=== PATIENT | male | born 1965 | race Caucasian/White ===

== ENCOUNTER 2021-10-18 11:03 | Emergency (ER) | payer OTHER ==
[~2021-10-18] VITALS: Ht 177.8 cm; Wt 113.6 kg
[2021-10-18] MEDS ORDERED: ondansetron/PF 4mg/2ml inj IV ONE (13:25)
[2021-10-18] MEDS ORDERED: morphine 4 MG/ML inj SYRINge IV ONE (13:45)
[2021-10-18 14:11] LABS: ALANINE AMINOTRANSFERASE 17 U/L (12-78); ALBUMIN/GLOBULIN RATIO 0.8 (1.1-1.5); ALKALINE PHOSPHATASE 175 IU/L (46-116); ANION GAP 14 (8-16); ASPARTATE AMINO TRANSFERASE 20 U/L (10-37); BILIRUBIN,TOTAL 1.3 MG/DL (0.1-1.0); BLOOD UREA NITROGEN 22 MG/DL (7-18); BUN/CREATININE RATIO 12.2 (5.4-32.0); CALCIUM 10.2 MG/DL (8.5-10.1); CHLORIDE 105 MMOL/L (99-107); CREATININE 1.81 MG/DL (0.60-1.10); GLUCOSE 153 MG/DL (70-104); LIPASE 73 U/L (73-393); POTASSIUM 4.8 MMOL/L (3.5-5.1); SODIUM 138 MMOL/L (135-145); TOTAL CARBON DIOXIDE 18.8 MMOL/L (24-32); TOTAL PROTEIN 9.2 G/DL (6.4-8.2); eGFR 39 ML/MIN
[2021-10-18] MEDS: proMETHazine 25mg tablet PO ONE ×2 (14:43→14:56)
[2021-10-18 14:44] LABS: BASOPHILS # (AUTO) 0.1 X10'3 (0-0.2); BASOPHILS % (AUTO) 0.2 % (0-1); EOSINOPHILS % (AUTO) 0.1 % (0-6); HEMATOCRIT 47.9 % (42.0-52.0); HEMOGLOBIN 16.6 g/dl (14.0-17.9); LYMPHOCYTES # (AUTO) 1.4 X10'3 (1.1-4.8); LYMPHOCYTES % (AUTO) 5.7 % (21-51); MEAN CORPUSCULAR HEMOGLOBIN 29.5 PG (27.0-31.0); MEAN CORPUSCULAR HGB CONC 34.7 g/dL (33.0-36.5); MEAN PLATELET VOLUME 7.8 FL (7.4-10.4); MONOCYTES # (AUTO) 1.4 X10'3 (0-0.9); MONOCYTES % (AUTO) 5.5 % (2-12); NEUTROPHILS # (AUTO) 21.8 X10'3 (1.8-7.7); NEUTROPHILS % (AUTO) 88.5 % (42-75); PLATELET COUNT 438 X10'3 (140-440); RED BLOOD COUNT 5.63 X10'6 (4.70-6.10); RED CELL DISTRIBUTION WIDTH 13.6 % (11.5-14.5); WHITE BLOOD COUNT 24.7 X10'3 (4.5-11.0)
[2021-10-18] MEDS ORDERED: metoclopramide 5 mg/ml inj IV ONE (14:50)
[2021-10-18] MEDS ORDERED: IOHEXOL 12MG/ML oral solution 500 ML BOTTLE PO ONE (15:05)
--- NOTE | 2021-10-18 15:25 | NUR ---
ORAL CONTRAST DRINK STARTED AT 1525.
[2021-10-18] MEDS ORDERED: proCHLORperazine 10 MG/2 ml inj IV ONE (15:30)
[2021-10-18] MEDS ORDERED: magnesium citrate 296ml oral solution PO ONE (18:10)
[2021-10-18] MEDS ORDERED: METO-292 PO (18:30)
[2021-10-18 21:20] VITALS: BP 161/96
== END 2021-10-18 21:23 | disposition home or self-care (01) ==
LOC: ER 11:03
DX: K59.00 Constipation, unspecified (principal); G89.29 Other chronic pain; Z88.5 Allergy status to narcotic agent; Z88.1 Allergy status to other antibiotic agents
CPT/HCPCS: 36415; 71046; 74018; 74176; 80053; 83605; 83690; 84145; 85025; 87040; 93005; 96374; 96375; 99285; J0780; J2270; J2405; J2765; J7030; Q0169

== ENCOUNTER 2023-08-29 09:53 | Day surgery (SDC) | payer MEDICARE ==
[2023-08-28 14:38] LABS: ALBUMIN 2.9 G/DL (3.4-5.0); ANION GAP 6 (8-16); BLOOD UREA NITROGEN 16 MG/DL (7-18); BUN/CREATININE RATIO 12.3 (10.0-20.0); CHLORIDE 106 MMOL/L (99-107); GLUCOSE 128 MG/DL (70-104); POTASSIUM 4.1 MMOL/L (3.5-5.1); SODIUM 138 MMOL/L (135-145); TOTAL CARBON DIOXIDE 26.1 MMOL/L (24-32); eGFR 57 ML/MIN
[2023-08-28 14:44] LABS: APTT 31 SECONDS (22-32); INR 1.1 INR; PROTHROMBIN TIME 11.4 SECONDS (9.0-12.0)
[2023-08-28 15:25] LABS: BASOPHILS # (AUTO) 0.1 X10'3 (0-0.2); BASOPHILS % (AUTO) 0.7 % (0-1); EOSINOPHILS # (AUTO) 0.4 X10'3 (0-0.9); EOSINOPHILS % (AUTO) 3.7 % (0-6); HEMATOCRIT 44.6 % (42.0-52.0); HEMOGLOBIN 15.5 g/dl (14.0-17.9); LYMPHOCYTES # (AUTO) 4.7 X10'3 (1.1-4.8); LYMPHOCYTES % (AUTO) 40.3 % (21-51); MEAN CORPUSCULAR HEMOGLOBIN 28.5 PG (27.0-31.0); MEAN CORPUSCULAR HGB CONC 34.8 g/dL (33.0-36.5); MEAN CORPUSCULAR VOLUME 81.8 FL (78-98); MEAN PLATELET VOLUME 8.1 FL (7.4-10.4); MONOCYTES # (AUTO) 1.1 X10'3 (0-0.9); MONOCYTES % (AUTO) 9.7 % (2-12); NEUTROPHILS # (AUTO) 5.4 X10'3 (1.8-7.7); NEUTROPHILS % (AUTO) 45.6 % (42-75); PLATELET COUNT 335 X10'3 (140-440); RED BLOOD COUNT 5.46 X10'6 (4.70-6.10); RED CELL DISTRIBUTION WIDTH 15.1 % (11.5-14.5); WHITE BLOOD COUNT 11.7 X10'3 (4.5-11.0)
[2023-08-29] VITALS (15 sets, daily range): BP systolic 103–146; BP diastolic 56–103; PULSE 50–100; RESP 13–22; TEMP 98; O2SAT 92–97
[~2023-08-29] VITALS: Ht 177.8 cm; Wt 110.0 kg
[~2023-08-29 09:53] MED LIST: AMI200T PO; APIX5TAB3 PO; ASPI81TA53 PO; ATOR10TA PO; CETI-194 PO; CINA60TA4 PO; DOCU100C40 PO; ESCI20TA PO; GABA-535 PO; LOP25T PO; MAGN400C PO; METO-477 PO; MULT-1085 PO; MYCO250C PO; OMEP40CA21 PO; ONDA-104 PO; OXYC-150 PO; TACR1CAP PO
[2023-08-29] MEDS ORDERED: AMI200T PO (10:26)
[2023-08-29] MEDS ORDERED: GABA800T11 PO (10:26)
[2023-08-29] MEDS ORDERED: OMEP20TA23 PO (10:26)
[2023-08-29] MEDS ORDERED: ATOR40TA71 PO (10:26)
[2023-08-29] MEDS ORDERED: MAGN500C4 PO (10:26)
[2023-08-29] MEDS ORDERED: MYCO500T PO (10:26)
[2023-08-29] MEDS: fentaNYL/PF 50MCG/1 ML 2ML syringe IV ONE (13:56)
[2023-08-29] MEDS: MIDAZolam 1mg/ml 10ml vial IV ONE (13:57)
== END 2023-08-29 15:40 | disposition home or self-care (01) ==
LOC: SSTAY O 09:53
PROVIDERS: ATTEND Student in an Organized Health Care Education/Training Program
DX: I48.91 Unspecified atrial fibrillation (principal); I44.7 Left bundle-branch block, unspecified; I11.0 Hypertensive heart disease with heart failure; I50.9 Heart failure, unspecified; I25.10 Atherosclerotic heart disease of native coronary artery without angina pectoris; G47.30 Sleep apnea, unspecified; I25.2 Old myocardial infarction; Z79.01 Long term (current) use of anticoagulants; Z79.899 Other long term (current) drug therapy; Z88.0 Allergy status to penicillin; Z88.8 Allergy status to other drugs, medicaments and biological substances
CPT/HCPCS: 36415; 80048; 85025; 85610; 85730; 92960; 93005; J2250; J3010; J7030

== ENCOUNTER 2025-01-20 10:40 | Inpatient (IN) | payer OTHER, MEDICARE ==
[~2025-01-20] VITALS: Ht 177.8 cm; Wt 106.3 kg
[~2025-01-20 10:40] MED LIST changes: -AMI200T PO; +AMIO200T76 PO; -ATOR10TA PO; +ATOR40TA71 PO; +GABA-1555 PO; -GABA-535 PO; -LOP25T PO; -MAGN400C PO; +MAGN500C4 PO; -MYCO250C PO; +MYCO500T PO; +OMEP20TA23 PO; -OMEP40CA21 PO; -OXYC-150 PO
--- NOTE | 2025-01-20 10:45 | ELECTROCARDIOGRAPH REPORT ---
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 Sherif Novoa Measurements Intervals [place] Rate: 151 P: 0 TN: 0 QRS: 5 QRSD: 125 T: 250 QT: 307 QTc: 487 Interpretive Statements Atrial flutter LVH with secondary repolarization abnormality Borderline prolonged QT interval Baseline wander in lead(s) V2,V3,V4,V5,V6 Electronically Signed On 01-22-2025 19:18:[address] Sherif Novoa Please click the below link to view image of tracing.
--- NOTE | 2025-01-20 11:30 | RADIOLOGY REPORT ---
CHEST RADIOGRAPH Indication: CP Technique: Single frontal view of the chest was obtained COMPARISON: DI CHEST,SINGLE VIEW on DOS: 05/03/23, DI CHEST,SINGLE VIEW on DOS: 05/02/23, DI CHEST,SINGLE VIEW on DOS: 05/01/23, DI CHEST,SINGLE VIEW on DOS: 04/30/23, DI CHEST,SINGLE VIEW on DOS: 04/29/23 FINDINGS: Lines and Tubes: Median sternotomy Lungs: Congestion Pleura: No effusion. No pneumothorax. Cardiomediastinal contours: Cardiomegaly Bones: Unremarkable IMPRESSION: Pulmonary vascular congestion.
[2025-01-20 11:32] LABS: MEAN PLATELET VOLUME 8.9 FL (7.4-10.4); RED CELL DISTRIBUTION WIDTH 13.9 % (11.5-14.5)
--- NOTE | 2025-01-20 11:40 | Physician Documentation ---
History of Present Illness ~ Chief Complaint: Palpitations Stated Complaint: AFIB Time Seen by MD: 11:34 Primary Medical Doctor: WAGNER RHODES HPI 59-year-old male presenting with palpitations and nausea He tells me that his symptoms started sudden onset this morning. He reports having a rapid irregular heart rate, as well as severe nausea. He had he reports a history of atrial fibrillation with similar symptoms in the past. The last time this happened was over a year ago and he was cardioverted. Denies having chest pain or shortness of breath. Denies recent infectious symptoms. Denies abdominal pain. He does have a history of atrial fibrillation, and has been on Eliquis but has not taken it for a couple of months. He has a history of dialysis but is not currently on dialysis. Medication Reconciliation Allergies: Coded Allergies: amlodipine (Verified Allergy, Unknown, RECESS GUMS, 04/22/23) amoxicillin (Verified Allergy, Unknown, HIVES, 04/22/23) Scheduled Amiodarone Hcl (Cordarone), 1 TAB PO DAILY, (Reported) Apixaban (Eliquis), 1 TAB PO Q12H, (Reported) Aspirin (Children's Aspirin), 81 MG PO Q24H@0830 Atorvastatin Calcium (Atorvastatin Calcium), 1 TAB PO DAILY, (Reported) Cetirizine HCl (Aller-Serafin), 1 TAB PO DAILY, (Reported) Cinacalcet HCl (Cinacalcet HCl), 1 TAB PO DAILY, (Reported) Escitalopram Oxalate (Lexapro), 1 TAB PO DAILY, (Reported) Gabapentin (Gabapentin), 1 TAB PO BID, (Reported) Magnesium Oxide (Magnesium), 1 CAP PO DAILY, (Reported) Metoprolol Tartrate (Lopressor*), 1 TAB PO Q12H Multivitamin (Multi Vitamin Daily), 1 TAB PO DAILY, (Reported) Mycophenolate Mofetil (Cellcept), 1 TAB PO Q12H, (Reported) Omeprazole Magnesium (Prilosec Otc), 1 TAB PO DAILY, (Reported) Tacrolimus Anhydrous (Prograf), 1 CAP PO Q12H, (Reported) Scheduled PRN Docusate Sodium (Docusate Sodium), 1 CAP PO DAILY PRN for constipation, (Reported) Ondansetron HCl (Ondansetron HCl), 1 TAB PO Q4H PRN for nausea, (Reported) Past Medical History Past Medical History: Atrial Fibrillation, Coronary Artery Disease, Hypertension, *GI/HEPATOBILIARY*, Cholelithiasis, GERD, Kidney Transplant, Chronic Pain Past Surgical History: abdominal surgery, appendectomy, cholecystectomy Other Past Surgical History: kidney transplant Alcohol Use: None Drug Use: none Lives In: Home Review of Systems Constitutional: Reports: chills Cardiovascular: Reports: diaphoresis, palpitations; Denies: chest pain Gastrointestinal: Reports: nausea; Denies: abdominal pain Physical Exam Vital Signs: Temperature: 97.6, Source: Temporal, Heart Rate: 145, Respiratory Rate: 18, BP: 154/113, Pulse Oximetry: 98, Weight: 106.300 Oxygen Flow Rate: 0 Physical Exam General: This is an ill-appearing middle-aged man, holding his abdomen, sweating, partner at bedside HEENT: Atraumatic, oropharynx is moist Heart: Tachycardic with an irregular rate, appears atrial fibrillation on the monitor, heart rate in the 140s Lungs: Diminished breath sounds bilateral, normal work of breathing, normal oxygen saturation on room air Abdomen: Soft, nondistended, nontender all quadrants Skin: Diaphoretic and dripping sweat Neuro: Alert and oriented, no focal deficits Psychiatric: Anxious and appears in distress Progress Results/Orders Results/Orders Orders - GARRET WASSERMAN MD Chest,Single View (01/20/25 11:04) Monitor (01/20/25 10:42) Saline Lock (01/20/25 10:42) Oxygen (01/20/25 10:42) Hs Troponin I W Calculations (01/20/25 13:42) LA (01/20/25 13:52) Culture Blood (01/20/25 13:52) Urinalysis, Cult If Indicated (01/20/25 13:52) Page Hospitalist (01/20/25 13:54) Completed Orders - GARRET WASSERMAN MD Chest,Single View (01/20/25 11:04) Cbc/Diff (01/20/25 10:42) BMP (01/20/25 10:42) PBNP (01/20/25 10:42) Electrocardiogram (01/20/25 10:42) Hs Troponin I W Calculations (01/20/25 10:42) Hs Troponin I W Calculations (01/20/25 12:42) Prochlorperazine Inj (Compazine Inj) (01/20/25 11:40) Normal Saline 1000ml (0.9% Sodium Chlori (01/20/25 11:40) Diphenhydramine Inj (Benadryl Inj.) (01/20/25 11:40) Propofol Inj (Diprivan Inj) (01/20/25 11:40) MG (01/20/25 10:58) Electrocardiogram (01/20/25 ) Prochlorperazine Inj (Compazine Inj) (01/20/25 13:50) Diphenhydramine Inj (Benadryl Inj.) (01/20/25 13:50) Lipase (01/20/25 10:58) Medications Received in ER Medications (Trade) Dose Ordered Sig/Chantel Route PRN Reason Start Time Stop Time Status Last Admin Dose Admin (Compazine inj) 10 mg ONCE ONCE IV 01/20/25 11:40 01/20/25 11:41 DC 01/20/25 11:48 10 MG Sodium Chloride 1,000 ml @ 1,000 mls/hr ONCE ONCE IV 01/20/25 11:40 01/20/25 12:39 DC 01/20/25 11:48 1,000 MLS/HR (Benadryl inj.) 12.5 mg ONCE ONCE IV 01/20/25 11:40 01/20/25 11:41 DC 01/20/25 11:48 12.5 MG (Compazine inj) 5 mg ONCE ONCE IV 01/20/25 13:50 01/20/25 13:54 DC 01/20/25 14:10 5 MG (Benadryl inj.) 25 mg ONCE ONCE IV 01/20/25 13:50 01/20/25 13:54 DC 01/20/25 14:10 25 MG Vital Signs 01/20/25 01/20/25 01/20/25 01/20/25 10:43 11:39 11:40 11:40 Temp 97.6 Pulse 150 145 Resp 18 18 B/P (MAP) 150/115 154/113 (127) Pulse Ox 99 98 98 O2 Delivery Room Air* O2 Flow Rate 0 0 FiO2 21 01/20/25 01/20/25 11:52 14:00 Pulse 80 75 Resp 16 18 B/P (MAP) 183/111 (135) 172/96 (121) Pulse Ox 98 97 O2 Flow Rate 0 0 Laboratory Tests Test 01/20/25 10:58 01/20/25 12:49 01/20/25 14:02 01/20/25 14:05 White Blood Count 18.7 H Red Blood Count 5.50 Hemoglobin 16.5 Hematocrit 48.8 Mean Corpuscular Volume 88.8 Mean Corpuscular Hemoglobin 30.1 Mean Corpuscular Hemoglobin Concent 33.9 Red Cell Distribution Width 13.9 Platelet Count 303 Mean Platelet Volume 8.9 Neutrophils (%) (Auto) 67.7 Lymphocytes (%) (Auto) 24.2 Monocytes (%) (Auto) 6.4 Eosinophils (%) (Auto) 1.3 Basophils (%) (Auto) 0.4 Neutrophils # (Auto) 12.6 H Lymphocytes # (Auto) 4.5 Monocytes # (Auto) 1.2 H Eosinophils # (Auto) 0.2 Basophils # (Auto) 0.1 CBC Comment Sodium Level 143 Potassium Level 3.9 Chloride Level 108 H Carbon Dioxide Level 23.1 L Anion Gap 12 Blood Urea Nitrogen 17 Creatinine 1.25 H Estimated GFR/1.73 m2 60 BUN/Creatinine Ratio 13.6 Glucose Level 147 H Calcium Level 10.2 H Magnesium Level 1.7 Troponin I High Sensitivity 74 122 *H Pro-B-Type Natriuretic Peptide 4377 H Albumin 3.6 Lipase 16 Chemistry Comments Troponin I High Sens Percent Delta 64 Troponin I Hi Sens Absolute Change 48 Re-Evaluation Re-Evaluation : Re-Evaluation: Improved Additional Comment On re-evaluation, the patient now appears to be in sinus rhythm with a heart rate in the 80s. EKG/XRAY/CT/US/VASC/MRI EKG : Additional Comment I personally interpreted the EKG and this shows: Atrial flutter versus fibrillation, rate 151, QTC 487 Repeat EKG: The patient is now in sinus rhythm, rate 76, QTC 480, he still has T-wave inversion in the inferior lateral leads Chest X-Ray : Additional Comments I personally interpreted the x-ray, and it shows: Mild pulmonary edema, no pneumothorax or focal consolidation Consults/PCP Consults/PCP : Additional Comment Consult: I spoke to the internal medicine service, for admission in the hospital Medical Decision Making Differential Dx:Considerations: Include: angina / MD, atrial dysrhythmia, atrial fibrillation, atrial flutter, sinus tachycardia Differential Dx:Considerations: Include electrolyte disorder, Include heart failure, Include pulmonary embolus, Include renal failure Additional Information The patient presents with palpitations and nausea. He is found to be in atrial fibrillation with RVR. He was given IV fluids and nausea medication. We were actually preparing for cardioversion, but he spontaneously converted back to normal sinus rhythm. However, he remained ill-appearing, nauseous, diaphoretic. His labs do show a leukocytosis and slightly up trending troponin. He denied chest pain during this entire episode. Overall, the exact cause of his symptoms is unclear. We will obtain lactate and blood cultures and urinalysis to further evaluate for underlying infection as a possible cause. He will be admitted for further observation and treatment Departure Impression: Primary Impression: Atrial fibrillation with RVR Additional Impression: Nausea Referrals: NO PRIMARY CARE PROVIDER (PCP) Critical Care Note Critical Care Note Critical Care Note The very real possibility of a deterioration of this patient's condition required the highest level of my preparedness for sudden, emergent intervention. I provided critical care services, which included medication orders, frequent reevaluations of the patient's condition and response to treatment, ordering and reviewing test results, and discussing the case with various consultants. Excludes time spent performing separately billable procedures. The critical care time associated with the care of the patient was 35 minutes in the management of atrial fibrillation with RVR Signature Scribe Signature: marlena Attestation: GARRET Eldridge MD Jan 20, 2025 11:40
[2025-01-20 11:45] LABS: CREATININE 1.25 MG/DL (0.60-1.10); PRO BRAIN NATRIURETIC PEPTIDE 4377 PG/ML (0-125); TOTAL CARBON DIOXIDE 23.1 MMOL/L (24-32); eCRCL 67 ML/MIN; eGFR 60 ML/MIN
[2025-01-20] MEDS: normal saline 1000ml 1,000 ML IV ONE (11:48)
[2025-01-20] MEDS: propofol 10mg/ml 20ml vial IV ONE (11:54)
--- NOTE | 2025-01-20 12:14 | ELECTROCARDIOGRAPH REPORT ---
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 Sherif Novoa Measurements Intervals [place] Rate: 76 P: 64 PA: 170 QRS: 0 QRSD: 128 T: -44 QT: 426 QTc: 480 Interpretive Statements Sinus rhythm LVH with secondary repolarization abnormality Inferior infarct, age indeterminate Electronically Signed On 01-22-2025 19:18:[address] Sherif Novoa Please click the below link to view image of tracing.
[2025-01-20] MEDS ORDERED: ondansetron/PF 4mg/2ml inj IV PRN (14:35)
[2025-01-20] MEDS ORDERED: morphine 4 MG/ML inj SYRINge IV PRN (14:35)
[2025-01-20] MEDS ORDERED: bisacodyl 10mg suppository rectal RC PRN (14:35)
[2025-01-20] MEDS ORDERED: potassium Cl 40MEQ/1/2NS 520ml 520 ML IV PRN (14:35)
[2025-01-20] MEDS ORDERED: magnesium sulf-water 2g/50mL 50 ML IV PRN (14:35)
[2025-01-20] MEDS ORDERED: magnesium sulf-water 4G/100mL 100 ML IV PRN (14:35)
[2025-01-20] MEDS ORDERED: magnesium Cl slow-release 64mg tablet PO PRN (14:35)
[2025-01-20] MEDS ORDERED: potassium Cl 20 mEq SR tablet PO PRN ×2 (14:35)
[2025-01-20] MEDS ORDERED: magnesium hydroxide 30ml (MOM) UD suspension PO PRN (14:35)
[2025-01-20] MEDS ORDERED: albuterol 2.5 MG/3 ML nebule NEB PRN (14:40)
[2025-01-20] MEDS: metroNIDAZOLE-Flagyl 500mg/NS 100 ML IV SCH (15:26)
[2025-01-20] MEDS: normal saline 1000ml 1,000 ML IV SCH (15:26)
[2025-01-20 16:10] LABS: LEUKOCYTE ESTERASE ,URINE NEGATIVE (Neg); NITRITES, URINE NEGATIVE (Neg); OCCULT BLOOD,URINE NEGATIVE (Neg)
[2025-01-20 16:55] LABS: UA COLLECTION TYPE URINAL
[2025-01-20 16:57] LABS: URINE AMPHETAMINE SCREEN NEGATIVE (Neg); URINE BARBITUATE SCREEN NEGATIVE (Neg); URINE BENZODIAZEPINES SCREEN NEGATIVE (Neg); URINE CANNABINOID SCREEN POSITIVE (Neg); URINE COCAINE SCREEN NEGATIVE (Neg); URINE METHADONE SCREEN NEGATIVE (Neg); URINE OPIATE SCREEN NEGATIVE (Neg); URINE PHENCYCLIDINE SCREEN NEGATIVE (Neg)
--- NOTE | 2025-01-20 18:14 | HISTORY AND PHYSICAL ---
History & Physical Providers to CC ~ History of Present Illness Reason for Admit\Complaint: Racing heart noticed around 4:30 a.m. History of Present Illness Patient is 59-year-old male with a history of chronic atrial fibrillation, IgA nephropathy, status post renal transplantation, good, chronic pain syndrome, status post CABG. He follows with Dr. Reyna and Dr. Hall in outpatient setting. Patient came to ER with his concern regarding rapid heart rate. Around 4:30 a.m.. He mentioned he took his meds last night but at the same time he told me that he had [place] drink last night also . ( he does not drink everyday but drink every few weeks) , denied use of any tobacco use cannabis two days ago. Denied any nausea vomiting or diarrhea. No recent change in medication history. No abdominal pain or urinary symptoms. He came with palpitation and nausea treated for atrial fibrillation with a RVR and his heart rate control but he was still very nauseated. Further workup showed CBC 18.7 with the elevated blood pressure signs of chronic kidney disease stage 3. Hospitalist services contacted for admission and further management . Allergies: Coded Allergies: amlodipine (Verified Allergy, Unknown, RECESS GUMS, 04/22/23) amoxicillin (Verified Allergy, Unknown, HIVES, 04/22/23) Home Medications Home Medications Active Lopressor* (Metoprolol Tartrate) 100 Mg Tablet 1 Tab PO Q12H 30 Days Children's Aspirin (Aspirin) 81 Mg Tab.chew 81 Mg PO Q24H@0830 Reported Cellcept (Mycophenolate Mofetil) 500 Mg Tablet 1 Tab PO Q12H 30 Days Prilosec Otc (Omeprazole Magnesium) 20 Mg Tablet.dr 1 Tab PO DAILY 30 Days Magnesium (Magnesium Oxide) 500 Mg Capsule 1 Cap PO DAILY 30 Days Gabapentin 800 Mg Tablet 1 Tab PO BID 30 Days Atorvastatin Calcium 40 Mg Tablet 1 Tab PO DAILY 30 Days Cordarone (Amiodarone HCl) 200 Mg Tablet 1 Tab PO DAILY 30 Days Eliquis (Apixaban) 5 Mg Tablet 1 Tab PO Q12H 30 Days Ondansetron HCl 8 Mg Tablet 1 Tab PO Q4H PRN Docusate Sodium 100 Mg Caps 1 Cap PO DAILY PRN 30 Days Aller-Serafin (Cetirizine HCl) 10 Mg Tablet 1 Tab PO DAILY 30 Days Prograf (Tacrolimus) 1 Mg Capsule 1 Cap PO Q12H 30 Days Multi Vitamin Daily (Multivitamin) 1 Each Tablet 1 Tab PO DAILY Lexapro (Escitalopram Oxalate) 20 Mg Tablet 1 Tab PO DAILY 30 Days Cinacalcet HCl 60 Mg Tablet 1 Tab PO DAILY Past Medical History Past Medical History history of IgA nephropathy. He was on dialysis for 9 years and then received a kidney transplant [facility] about 10 years ago. Chronic atrial fibrillation IgA nephropathy Kidney transplant status GERD Chronic pain syndrome Past Surgical History Surgical History Comment Cadaveric renal transplant 10 years ago Past Social History Social History Comment Non-smoker, use cannabis last use of cannabis two days back. Patient had the killer drink last night he usually drink every few weeks off and on. Lives with his . ROS ROS Review of system as mentioned above in HPI rest of the review of system unremarkable Exam Vitals: Vital Signs Date Time Temp Pulse Resp B/P (MAP) Pulse Ox O2 Delivery O2 Flow Rate FiO2 01/20/25 17:00 74 16 156/83 (107) 98 0 01/20/25 11:40 Room Air* 21 01/20/25 10:43 97.6 General: General-patient not in any acute distress, alert awake oriented, chronically ill-appearing HEENT-atraumatic normocephalic, neck supple without elevated JVD, no thyromegaly or carotid bruit. No lymphadenopathy bilaterally. Eyes-no icterus or pallor seen in eyes Chest-clear to auscultation bilaterally, breathing nonlabored no tachypnea, no wheezing, no crepitation, no crackles. Heart-S1-S2 normal, irregular heart rate no murmur Abdomen bowel sounds positive on auscultation, soft nondistended nontender no guarding, no rigidity Skin no active skin rash old healed rash over midline Neurology-grossly intact, nonfocal alert awake oriented Extremity- no pedal edema able to move all 4 extremities Psychiatry - patient is not confused or agitated cooperated during physical examination Diagnostic Data Last Recorded Lab Results: 01/20/25 1058 01/20/25 1058 Diagnostic Data: Laboratory Tests Test 01/20/25 14:55 D-Dimer 0.39 MG/L FEU (0-0.50) D-Dimer Comment Advance Care Planning Advanced Care plannin - 30 Minutes Additional Plan Patient is 59-year-old male with a history of chronic atrial fibrillation, IgA nephropathy, status post renal transplantation, good, chronic pain syndrome, status post CABG. He follows with Dr. Reyna and Dr. Hall in outpatient setting. Patient is admitted for chronic atrial fibrillation possible sepsis chronic kidney disease stage 3, nausea with CBC 18.7 with the elevated blood pressure signs of chronic kidney disease stage 3, nausea with the elevated troponin likely type 2 [place]. patient is started on metoprolol 100 mg p.o. b.i.d. which is his home medication dose. Ordered echocardiogram and we will follow the results. Hydralazine antihypertensive medication. Sepsis workup ordered patient is started on ceftriaxone and Flagyl. Pain medication ordered for pain control started on IV fluids for chronic kidney disease stage 3. We will continue to monitor patient's labs and vitals closely . Needs physical therapy evaluation before discharge . Code status discussed with the patient patient wishes full code. Time spent in discussing code status 16 minutes. We will do home medication reconciliation once updated in electronic by nursing staff or pharmacist. Further management depending on response to treatment and we will contact e learning specialist if needed. I will continue to follow patient in a.m. Date of Service: Jan 20, 2025 Billing Provider: LEMUEL HEAD MD Common Visit Codes: [id number] INP/OBS CARE (HIGH) Secondary Visit Codes: [id number] CARE PLAN 30 MINUTES LEMUEL HEAD MD Jan 20, 2025 18:14
--- NOTE | 2025-01-20 18:49 | CARDIOLOGY REPORT ---
APPROVED REPORT EXAM: Comprehensive 2D, Doppler, and color-flow Echocardiogram. 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 163.7 cm/s AoV VTI 27.0 cm AO Peak GR. 10.7 mmHg AO Mean GR. 6 mmHg LVOT VTI 23.18 cm LVOT Peak Jermaine. 119.7 cm/s CHAPARRITA(VTI)/BSA 2.66 cm2/m2 CHAPARRITA (VTI) 2.66 cm2 Mitral Valve MV E Velocity 139.6 cm/s MV Peak Gr. 12 mmHg MV DECEL TIME 156 ms MV A Velocity 149.7 cm/s MV PHT 68 ms E/A Ratio 0.9 MVA (PHT) 3.24 cm2 MV VMax 171.8 cm/s TDI Lateral E' P. V 5.07 cm/s E/Lateral E' 27.5 Tricuspid Valve TR P. Velocity 250 cm/s RAP ESTIMATE 10 mmHg TR Peak Gr. 25 mmHg RVSP 35 mmHg LEFT VENTRICLE Normal LV size and wall thickness. Overall systolic function is mildly reduced to low normal. LVEF is 50-55%. RIGHT VENTRICLE RV is mildly dilated with normal function. Elevated right heart pressures with an RVSP of 35 mmHg. ATRIA Left atrium is severely dilated. AORTIC VALVE Trileaflet AV appears mildly sclerotic without stenosis. Trace insufficiency. MITRAL VALVE Mild MV annular calcification without stenosis. Moderate regurgitation. TRICUSPID VALVE TV appears structurally normal with trace regurgitation. PULMONIC VALVE Normal PV without stenosis, no insufficiency. GREAT VESSELS Aortic root is mildly dilated, at 4.04 cm. IVC is dilated and collapses less than 50% with inspiration. PERICARDIUM Normal pericardium. No effusion. Other Information Study Quality: Adequate Conclusion Normal LV size and wall thickness. Overall systolic function is mildly reduced to low normal. LVEF is 50-55%. RV is mildly dilated with normal function. Elevated right heart pressures with an RVSP of 35 mmHg. Left atrium is severely dilated. Trileaflet AV appears mildly sclerotic without stenosis. Trace insufficiency. Mild MV annular calcification without stenosis. Moderate regurgitation. TV appears structurally normal with trace regurgitation. Aortic root is mildly dilated, at 4.04 cm. Normal pericardium. No effusion.
[2025-01-20 19:09] VITALS: PULSE 80; O2SAT 96
[2025-01-20] MEDS: heparin, porcine 5000 units/ml vial SQ SCH (20:12)
[2025-01-20] MEDS ORDERED: ZOLP-679 PO (20:43)
[2025-01-20] MEDS ORDERED: GABA-1555 PO (20:43)
[2025-01-20] MEDS ORDERED: CYCL-357 PO (20:43)
[2025-01-20] MEDS ORDERED: OXYC-150 PO (20:43)
[2025-01-20 21:39] VITALS: BP 185/108; PULSE 71; RESP 10; O2SAT 94
[2025-01-20 22:00] VITALS: BP 122/67; PULSE 80; RESP 20; TEMP 98.1; O2SAT 99
[2025-01-20] MEDS: hydrALAZINE 20mg/ml inj. IV PRN (22:00)
[2025-01-20 22:43] VITALS: BP 166/98; PULSE 80
[2025-01-20 23:00] VITALS: RESP 12; O2SAT 95
[2025-01-21] VITALS (11 sets, daily range): BP systolic 118–159; BP diastolic 59–95; PULSE 57–70; RESP 12–24; TEMP 97.6–99.1; O2SAT 91–97
[2025-01-21] MEDS ORDERED: ACYC-53 PO (01:26)
[2025-01-21] MEDS ORDERED: AMIO200T73 PO (01:26)
[2025-01-21] MEDS ORDERED: ATOR40TA72 PO (01:26)
[2025-01-21] MEDS ORDERED: FLUO40CR (01:26)
[2025-01-21 06:07] LABS: MEAN PLATELET VOLUME 9.3 FL (7.4-10.4); RED CELL DISTRIBUTION WIDTH 13.7 % (11.5-14.5)
[2025-01-21 06:34] LABS: CREATININE 1.00 MG/DL (0.60-1.10); TOTAL CARBON DIOXIDE 18.6 MMOL/L (24-32); eCRCL 84 ML/MIN; eGFR 77 ML/MIN
[2025-01-21] MEDS: CefTRIAXone 2gm/D5W 50ml BAG 50 ML IV SCH (08:49)
--- NOTE | 2025-01-21 11:05 | ELECTROCARDIOGRAPH REPORT ---
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 ROXANE Gong Measurements Intervals [place] Rate: 65 P: 70 [place]: 162 QRS: 6 QRSD: 122 T: -73 QT: 495 QTc: 515 Interpretive Statements Sinus rhythm Consider left atrial enlargement LVH with secondary repolarization abnormality Inferoposterior infarct, recent Prolonged QT interval Electronically Signed On 01-21-2025 16:48:[address] ROXANE Gong Please click the below link to view image of tracing.
[2025-01-21] MEDS ORDERED: non-formulary drug (Zolpidem Tartrate (Ambien) 1 TAB) PO PRN (18:20)
--- NOTE | 2025-01-21 18:24 | PROGRESS NOTE ---
Daily Progress Note Providers to CC ~ Antibiotic Timeout Antibiotic Ordered?: Yes Subjective Patient is seen in his room he is feeling much better since yesterday denies any cardiovascular symptoms. Care plan discussed with the patient who is awake alert, all questions answered and all concerns addressed appropriately. Objective Vital Signs Date Time Temp Pulse Resp B/P (MAP) Pulse Ox O2 Delivery O2 Flow Rate FiO2 01/21/25 16:00 98.0 57 24 134/83 (100) 94 Room Air 01/21/25 07:38 0 21 Result Diagram: 01/21/25 0501/21/25 0517 General-patient not in any acute distress, alert awake oriented, chronically ill-appearing HEENT-atraumatic normocephalic, neck supple without elevated JVD, no thyromegaly or carotid bruit. No lymphadenopathy bilaterally. Eyes-no icterus or pallor seen in eyes Chest-clear to auscultation bilaterally, breathing nonlabored no tachypnea, no wheezing, no crepitation, no crackles. Heart-S1-S2 normal, irregular heart rate no murmur Abdomen bowel sounds positive on auscultation, soft nondistended nontender no guarding, no rigidity Skin no active skin rash old healed rash over midline Neurology-grossly intact, nonfocal alert awake oriented Extremity- no pedal edema able to move all 4 extremities Psychiatry - patient is not confused or agitated cooperated during physical examination Coagulation Studies Laboratory Tests Test 01/20/25 14:55 D-Dimer 0.39 MG/L FEU (0-0.50) D-Dimer Comment Problem\Assessment\Plan # Patient is 59-year-old male with a history of chronic atrial fibrillation, IgA nephropathy, status post renal transplantation, good, chronic pain syndrome, status post CABG. He follows with Dr. Reyna and Dr. Hall in outpatient setting. Patient is admitted for chronic atrial fibrillation possible sepsis chronic kidney disease stage 3, nausea with CBC 18.7 with the elevated blood pressure signs of chronic kidney disease stage 3, nausea with the elevated troponin likely type 2 [place]. patient is started on metoprolol 100 mg p.o. b.i.d. which is his home medication dose. Ordered echocardiogram and we will follow the results. Hydralazine antihypertensive medication. Sepsis workup ordered patient is started on ceftriaxone and Flagyl. Pain medication ordered for pain control started on IV fluids for chronic kidney disease stage 3. 01/21-home medication reconciliation updated in electronic records. Echocardiogram showed mildly reduced LVEF 50-55%, elevated right-sided heart pressure RVSP 35, left atrium is severely dilated normal pericardium no effusion. CBC count improving sed rate 12, procalcitonin 0.05 we will continue IV antibiotics. Blood culture showed no growth after one day Renal function improved we will continue to monitor renal function for chronic kidney disease stage 3. Code status discussed with the patient patient wishes full code. We will continue to monitor patient's labs and vitals closely . Further management depending on response to treatment . I will continue to follow patient in a.m. Date of Service: Jan 21, 2025 Billing Provider: LEMUEL HEAD MD Common Visit Codes: [id number] INP/OBS CARE(HIGH) LEMUEL HEAD MD Jan 21, 2025 18:24
[2025-01-21] MEDS: tacrolimus anhydrous 1mg capsule PO SCH (20:06)
[2025-01-22] VITALS (11 sets, daily range): BP systolic 134–200; BP diastolic 76–108; PULSE 55–110; RESP 12–24; TEMP 97.2–98.1; O2SAT 92–98
[2025-01-22] MEDS: HYDROcodone/acetaminophen 5mg/325mg tablet PO PRN (05:48)
[2025-01-22 06:06] LABS: MEAN PLATELET VOLUME 9.2 FL (7.4-10.4); RED CELL DISTRIBUTION WIDTH 14.0 % (11.5-14.5)
[2025-01-22 06:17] LABS: CREATININE 1.03 MG/DL (0.60-1.10); TOTAL CARBON DIOXIDE 21.3 MMOL/L (24-32); eCRCL 82 ML/MIN; eGFR 74 ML/MIN
[2025-01-22] MEDS: cinacalcet 30mg tablet PO SCH (09:34)
[2025-01-22] MEDS: ESCITALOPRAM 10 mg tablet 10 MG TABLET PO SCH (09:35)
[2025-01-22] MEDS: ondansetron 4mg rapidly disintigrating tab PO PRN (13:30)
[2025-01-22] MEDS ORDERED: LOSA50TA64 PO (15:22)
[2025-01-22] MEDS ORDERED: HYDR50TA46 PO (15:23)
[2025-01-22] MEDS ORDERED: LEVO-65 PO (19:48)
--- NOTE | 2025-01-22 19:54 | DISCHARGE SUMMARY ---
Discharge Summary Providers to CC ~ Discharge Summary Admission Diagnosis: Paroxysmal AFib, possible sepsis, CKD three Hospital Course DATE OF ADMISSION: January 20, 2025 DATE OF DISCHARGE: January 22, 2025 CMP done on January 22, 2025 sodium 138 potassium 4.0 creatinine 1.03 GFR 74 lactic acid 1.5 procalcitonin 0.05, total bilirubin 2.4 normal liver enzymes. CBC testing done on January 22, 2025 WBC 15.8 hemoglobin 14.5 hematocrit 42.3 platelet count 279 sed rate 12. Blood culture showed no growth after two days X-ray chest showed signs of pulmonary vascular congestion Echocardiogram.Conclusion Normal LV size and wall thickness. Overall systolic function is mildly reduced to low normal. LVEF is 50-55%. RV is mildly dilated with normal function. Elevated right heart pressures with an RVSP of 35 mmHg. Left atrium is severely dilated. Trileaflet AV appears mildly sclerotic without stenosis. Trace insufficiency. Mild MV annular calcification without stenosis. Moderate regurgitation. TV appears structurally normal with trace regurgitation. Aortic root is mildly dilated, at 4.04 cm. Normal pericardium. No effusion. Discharge Diagnosis\Comment: chronic atrial fibrillation possible sepsis chronic kidney disease stage 3, nausea history of chronic atrial fibrillation, IgA nephropathy, status post renal transplantation, good, chronic pain syndrome, status post CABG. Operations\Procedures: None Consultants: None Complications: None Condition on DC: Stable New Medications: Hydralazine HCl (Hydralazine HCl) 50 Mg Tablet 1 TAB PO Q12H for 30 Days, #60 TAB 0 Refills Levofloxacin (Levofloxacin) 500 Mg Tablet 500 MG PO DAILY for 5 Days, #5 TAB Losartan Potassium (Losartan Potassium) 50 Mg Tablet 50 MG PO DAILY for 30 Days, #30 TAB Continued Medications: Acyclovir (Acyclovir) 200 Mg Capsule 2 CAP PO PRN Apixaban (Eliquis) 5 Mg Tablet 1 TAB PO Q12H for 30 Days, #60 TAB 0 Refills Atorvastatin Calcium (Atorvastatin Calcium) 40 Mg Tablet 1 TAB PO HS Cetirizine HCl (Aller-Serafin) 10 Mg Tablet 1 TAB PO DAILY for allergy symptoms for 30 Days, #30 TAB 0 Refills Cinacalcet HCl (Cinacalcet HCl) 60 Mg Tablet 1 TAB PO DAILY for WITH FOOD Cyclobenzaprine HCl (Cyclobenzaprine HCl) 10 Mg Tablet 1 TAB PO HS for muscle spasms for 30 Days, #30 TAB 0 Refills Docusate Sodium (Docusate Sodium) 100 Mg Caps 1 CAP PO DAILY PRN for constipation for 30 Days, #30 CAP 0 Refills Escitalopram Oxalate (Lexapro) 20 Mg Tablet 1 TAB PO DAILY for 30 Days, #30 TAB Fluorouracil (Efudex) 5 % Cream..g. 1 APPLIC Gabapentin (Gabapentin) 800 Mg Tablet 1 TAB PO TID for 30 Days, #120 TAB 0 Refills Magnesium Oxide (Magnesium) 500 Mg Capsule 1 CAP PO DAILY for 30 Days, #60 CAP 0 Refills Metoprolol Tartrate (Lopressor*) 100 Mg Tablet 1 TAB PO Q12H for 30 Days, #60 TAB 0 Refills Multivitamin (Multi Vitamin Daily) 1 Each Tablet 1 TAB PO DAILY Mycophenolate Mofetil (Cellcept) 500 Mg Tablet 1 TAB PO Q12H for 30 Days, #60 TAB 0 Refills Omeprazole Magnesium (Prilosec Otc) 20 Mg Tablet.dr 1 TAB PO DAILY for 30 Days, #30 TAB 0 Refills Ondansetron HCl (Ondansetron HCl) 8 Mg Tablet 1 TAB PO Q4H PRN for nausea Oxycodone HCl/Acetaminophen (Percocet 10-325 mg Tablet) 10 Mg-325 Mg Tablet 1 TAB PO QID PRN PRN for pain for 30 Days, #30 TAB 0 Refills Tacrolimus Anhydrous (Prograf) 1 Mg Capsule 1 CAP PO Q12H for 30 Days, #60 CAP 0 Refills Zolpidem Tartrate (Ambien) 10 Mg Tablet 1 TAB PO HSPRN PRN for sleep for 30 Days, #30 TAB 0 Refills Discharge Summary: # Patient is 59-year-old male with a history of chronic atrial fibrillation, IgA nephropathy, status post renal transplantation, good, chronic pain syndrome, status post CABG. He follows with Dr. Reyna and Dr. Hall in outpatient setting. Patient is admitted for chronic atrial fibrillation possible sepsis chronic kidney disease stage 3, nausea with CBC 18.7 with the elevated blood pressure signs of chronic kidney disease stage 3, nausea with the elevated troponin likely type 2 DE. patient is started on metoprolol 100 mg p.o. b.i.d. which is his home medication dose. Ordered echocardiogram and we will follow the results. Hydralazine antihypertensive medication. Sepsis workup ordered patient is started on ceftriaxone and Flagyl. Pain medication ordered for pain control started on IV fluids for chronic kidney disease stage 3. 01/21-home medication reconciliation updated in electronic records. Echocardiogram showed mildly reduced LVEF 50-55%, elevated right-sided heart pressure RVSP 35, left atrium is severely dilated normal pericardium no effusion. CBC count improving sed rate 12, procalcitonin 0.05 we will continue IV antibiotics. Blood culture showed no growth after one day Renal function improved we will continue to monitor renal function for chronic kidney disease stage 3. 01/22- patient's blood pressure was uncontrolled he was discharged on hydralazine and losartan at home. Levofloxacin prescribed for possible sepsis Patient is feeling better she has been afebrile and getting discharged home in stable condition. Patient is seen and examined on the day of discharge. All labs, diagnostic workup and discharge plan discussed with patient and family members in detail before her discharge. All questions and queries answered to the best of my professional medical knowledge. I heard patient's concerns and address appropriately. Patient was cleared by Physical therapy team for home discharge . grain oilseed or pasture farm manager involved in patient's discharge plan. Discharge instructions provided to the patient. Please follow-up with the agriculture extension specialist and primary career development associate in outpatient setting after hospital discharge. Read the side effects of all your medication activity as tolerated. Repeat CBC procalcitonin sed rate BMP in five days. Adjustment of blood pressure medication done during hospital stay. Maintain blood pressure and heart rate log book for 2-3 weeks and follow-up with the primary care physician/ medical sales specialist for hypertension. General-patient not in any acute distress, alert awake oriented, chronically ill-appearing HEENT-atraumatic normocephalic, neck supple without elevated JVD, no thyromegaly or carotid bruit. No lymphadenopathy bilaterally. Eyes-no icterus or pallor seen in eyes Chest-clear to auscultation bilaterally, breathing nonlabored no tachypnea, no wheezing, no crepitation, no crackles. Heart-S1-S2 normal, irregular heart rate no murmur Abdomen bowel sounds positive on auscultation, soft nondistended nontender no guarding, no rigidity Skin no active skin rash old healed rash over midline Neurology-grossly intact, nonfocal alert awake oriented Extremity- no pedal edema able to move all 4 extremities Psychiatry - patient is not confused or agitated cooperated during physical examination *Problems/Diagnosis: (1) Atrial fibrillation with RVR (2) Leukocytosis Status: Acute Total Time Spent on D/C: > 30 Minutes Date of Service: Jan 22, 2025 Billing Provider: LEMUEL HEAD MD Common Visit Codes: 01572-TKK/OBS DISCH DAY >30min LEMUEL HEAD MD Jan 22, 2025 19:50
== END 2025-01-22 17:55 | disposition home or self-care (01) | DRG 871 ==
LOC: ER 10:41 → UNDOADMIN 14:38 → ED HOLD 14:38 → EDBEDREQ 17:34 → EDBEDREQSVC 17:34 → ED HOLD 21:32 → PCU 3S 21:32
PROVIDERS: ADMIT Internal Medicine; ATTEND Internal Medicine
DX: A41.9 Sepsis, unspecified organism (principal); I21.A1 Myocardial infarction type 2; Z94.0 Kidney transplant status; I48.20 Chronic atrial fibrillation, unspecified; N18.30 Chronic kidney disease, stage 3 unspecified; K21.9 Gastro-esophageal reflux disease without esophagitis; G89.4 Chronic pain syndrome; I25.10 Atherosclerotic heart disease of native coronary artery without angina pectoris; I12.9 Hypertensive chronic kidney disease with stage 1 through stage 4 chronic kidney disease, or unspecified chronic kidney disease; Z88.0 Allergy status to penicillin; Z88.8 Allergy status to other drugs, medicaments and biological substances; Z88.1 Allergy status to other antibiotic agents; Z95.1 Presence of aortocoronary bypass graft; Z79.01 Long term (current) use of anticoagulants
CPT/HCPCS: 36415; 71045; 80048; 80053; 80305; 81003; 82948; 83605; 83690; 83735; 83880; 84145; 84484; 85025; 85379; 85651; 87040; 87081; 93005; 93306; 94760; 96365; 96375; 99291; G0378; J0360; J0604; J0696; J0780; J1200; J1644; J3490; J7030; J7040; J7507; J7517

== ENCOUNTER 2025-02-11 10:11 | Day surgery (SDC) | payer MEDICARE ==
[2025-02-10 15:03] LABS: MEAN PLATELET VOLUME 7.8 FL (7.4-10.4); RED CELL DISTRIBUTION WIDTH 14.4 % (11.5-14.5)
[2025-02-10 15:21] LABS: APTT 30 SECONDS (22-32); CHOL/HDL RATIO 3.5 (0.00-4.99); CREATININE 1.57 MG/DL (0.60-1.10); INR 1.1 INR; LDL CHOLESTEROL 75 MG/DL (50-100); TOTAL CARBON DIOXIDE 23.0 MMOL/L (24-32); eGFR 46 ML/MIN
[~2025-02-11] VITALS: Ht 177.8 cm; Wt 106.5 kg
[2025-02-11] VITALS (7 sets, daily range): BP systolic 110–131; BP diastolic 79–96; PULSE 53–62; RESP 12–20; TEMP 98.2; O2SAT 94–99
[~2025-02-11 10:11] MED LIST changes: +ACYC-53 PO; -AMIO200T76 PO; -ASPI81TA53 PO; -ATOR40TA71 PO; +ATOR40TA72 PO; +CYCL-357 PO; +FLUO40CR; +HYDR50TA46 PO; +LOSA50TA64 PO; +OXYC-150 PO; +ZOLP-679 PO
[2025-02-11] MEDS ORDERED: normal saline 1000ml 1,000 ML IV SCH ×2 (10:35→11:30)
[2025-02-11] MEDS ORDERED: ACET-1025 PO (10:52)
[2025-02-11] MEDS ORDERED: HYDR50TA46 PO (10:52)
[2025-02-11] MEDS ORDERED: SOTA80TA PO (10:52)
[2025-02-11] MEDS ORDERED: GABA-535 PO (10:52)
[2025-02-11] MEDS ORDERED: MYCO250C46 PO (10:52)
[2025-02-11] MEDS ORDERED: MAGN400C PO (10:52)
[2025-02-11] MEDS ORDERED: ECON30CR5 TOP (10:52)
[2025-02-11] MEDS ORDERED: LOSA50TA64 PO (10:52)
[2025-02-11] MEDS ORDERED: MIDAZolam 1mg/ml 10ml vial IV ONE (11:30)
[2025-02-11] MEDS ORDERED: fentaNYL/PF 50MCG/1 ML 2ML syringe IV ONE (11:30)
[2025-02-11] MEDS ORDERED: fentaNYL/PF 50MCG/1 ML 2ML syringe ONE (12:06)
[2025-02-11] MEDS ORDERED: midazolam 1 mg/ML 2ml injection ONE (12:06)
--- NOTE | 2025-02-11 13:34 | ELECTROCARDIOGRAPH REPORT ---
[facility] Test Date: 2025-02-11 Test Time: 13:31:42 Pat Name: ANDRZEJ JACINTO Department: [facility] Patient ID: [facility]-[id number] Room: Gender: M Sales Process Manager: : 1965 Requested By: MONICA REYNA Order Number: [id number] Reading MD: Dr. Ignacia Reyna Measurements Intervals [place] Rate: 55 P: 60 NH: 185 QRS: -4 QRSD: 121 T: 132 QT: 486 QTc: 465 Interpretive Statements Sinus rhythm Ventricular premature complex Left atrial enlargement LVH with secondary repolarization abnormality Inferior infarct, old Electronically Signed On 02-12-2025 6:39:[address] Ignacia Reyna Please click the below link to view image of tracing.
== END 2025-02-11 14:40 | disposition home or self-care (01) ==
LOC: SSTAY O 10:11
PROVIDERS: ATTEND Student in an Organized Health Care Education/Training Program
DX: I48.91 Unspecified atrial fibrillation (principal); I25.2 Old myocardial infarction; I49.3 Ventricular premature depolarization; I11.0 Hypertensive heart disease with heart failure; I50.9 Heart failure, unspecified; I25.10 Atherosclerotic heart disease of native coronary artery without angina pectoris; E78.00 Pure hypercholesterolemia, unspecified; G47.33 Obstructive sleep apnea (adult) (pediatric); Z79.01 Long term (current) use of anticoagulants; Z79.899 Other long term (current) drug therapy; Z94.0 Kidney transplant status; Z88.0 Allergy status to penicillin; Z88.8 Allergy status to other drugs, medicaments and biological substances
CPT/HCPCS: 36415; 80048; 80061; 85025; 85610; 85730; 92960; 93005; 99152; J2250; J3010; J7030

== ENCOUNTER 2025-04-08 11:08 | Emergency (ER) | payer MEDICARE ==
[~2025-04-08] VITALS: Ht 177.8 cm; Wt 104.1 kg
[~2025-04-08 11:08] MED LIST changes: +ACET-1025 PO; -CINA60TA4 PO; -DOCU100C40 PO; +ECON30CR5 TOP; -FLUO40CR; -GABA-1555 PO; +GABA-535 PO; +MAGN400C PO; -MAGN500C4 PO; -METO-477 PO; +MYCO250C46 PO; -MYCO500T PO; -OXYC-150 PO; +SOTA80TA PO; -ZOLP-679 PO
--- NOTE | 2025-04-08 11:26 | Physician Documentation ---
History of Present Illness ~ Chief Complaint: Irregular Heartbeat Stated Complaint: DOC SENT AFIB RVR Time Seen by MD: 11:19 Primary Medical Doctor: WAGNER WELLS This is a 59-year-old male with a history of IgA nephropathy s/p renal transplant on immunosuppressants, NH s/p three way bypass, atrial fibrillation s/p unsuccessful cardioversion in the past and ablation on 03/28/2025 presents to the ER after being referred by his PCP for atrial fibrillation with RVR. Patient endorses that he was not feeling himself and felt like his heart was racing. He was then redirected to the ER by his PCP. Medication Reconciliation Allergies: Coded Allergies: amlodipine (Verified Allergy, Unknown, RECESS GUMS, 04/22/23) amoxicillin (Verified Allergy, Unknown, HIVES, 04/22/23) Scheduled Acyclovir (Acyclovir), 2 CAP PO BID, (Reported) Apixaban (Eliquis), 1 TAB PO Q12H, (Reported) Atorvastatin Calcium (Atorvastatin Calcium), 1 TAB PO HS, (Reported) Cetirizine HCl (Aller-Serafin), 1 TAB PO DAILY, (Reported) Cyclobenzaprine HCl (Cyclobenzaprine HCl), 1 TAB PO HS, (Reported) Econazole Nitrate (Econazole Nitrate), 1 APPLIC TOP DAILY, (Reported) Escitalopram Oxalate (Lexapro), 1 TAB PO DAILY, (Reported) Gabapentin (Gabapentin), 1 CAP PO BID, (Reported) Hydralazine HCl (Hydralazine HCl), 1 TAB PO Q12H, (Reported) Losartan Potassium (Losartan Potassium), 1 TAB PO DAILY, (Reported) Magnesium Oxide (Magnesium), 1 CAP PO DAILY, (Reported) Multivitamin (Multi Vitamin Daily), 1 TAB PO DAILY, (Reported) Mycophenolate Mofetil (Cellcept), 1 CAP PO Q12H, (Reported) Omeprazole Magnesium (Prilosec Otc), 1 TAB PO DAILY, (Reported) Sotalol Hcl (Sotalol), 1 TAB PO Q12H, (Reported) Tacrolimus Anhydrous (Prograf), 1 CAP PO Q12H, (Reported) Scheduled PRN Acetaminophen (Tylenol Extra Strength), 2 TAB PO Q6H PRN PRN for pain or fever, (Reported) Ondansetron HCl (Ondansetron HCl), 1 TAB PO Q4H PRN for nausea, (Reported) Past Medical History Past Medical History: Atrial Fibrillation, Coronary Artery Disease, Hypertension, *GI/HEPATOBILIARY*, Cholelithiasis, GERD, Kidney Transplant, Chronic Pain Past Surgical History: abdominal surgery, appendectomy, cholecystectomy Other Past Surgical History: kidney transplant Alcohol Use: None Drug Use: none Lives In: Home Review of Systems Constitutional Constitutional: No fever, chills, dizziness, weakness, weight gain or loss Eyes: No pain, erythema, discharge, blurring of vision ENT: No sore throat, epistaxis, tinnitus Cardiovascular: palpitations, no syncope, lower extremity edema, paroxysmal nocturnal dyspnea Respiratory: No hemoptysis Gastrointestinal: Normal appetite. No nausea, vomiting, diarrhea, constipation, hematemesis, abdominal pain, bloating, melena or fresh blood Genitourinary: No frequency, urgency, nocturia, hematuria or dysuria Musculoskeletal: No arthralgias or myalgias Integumentary: No change in skin, hair, nails. No swelling, bruising, abrasions Neurologic: No headache, neck pain, numbness or tingling of the extremities, weakness Psychiatric: No delusions, depression, loss of interest in normal activity or change in sleep pattern, hallucinations, suicidal ideations Endocrine: No fatigue, weakness, polydipsia, polyuria, change in appetite, heat or cold intolerance, sweating, dry skin Hematological: No bleeding, petechiae, bruising Allergies: No asthma or urticaria Physical Exam Vital Signs: Temperature: 97.9, Source: Core, Heart Rate: 122, Respiratory Rate: 19, BP: 140/115, Pulse Oximetry: 98, Weight: 104.090 Oxygen Flow Rate: 0 Physical Exam General: Awake and Alert, no acute distress. HEENT: Conjunctiva pink, Sclera clear, Mucus Membranes moist Neck: Supple without masses and tenderness. Resp: Unlabored. Equal breath sounds bilaterally. Heart: Irregular rate and rhythm, no rub, murmur or gallop, muffled heart sounds. Abdomen: Soft and non tender no organomegaly. Normal bowel sounds x4 quadrant normoactive. No guarding or rigidity. Extremities: Normal ROM, no swelling, nontender. No cyanosis,clubbing or edema. INTERNAL CONTROLS SPECIALIST: No gross motor or sensory abnormalities. Skin: Warm and Dry. Progress Results/Orders Results/Orders Orders - OHLILIYA STEVENSON MD Chest,Single View (04/08/25 11:17) Monitor (04/08/25 11:09) Saline Lock (04/08/25 11:09) Oxygen (04/08/25 11:09) Completed Orders - LILIYA LORD MD Chest,Single View (04/08/25 11:17) Cbc/Diff (04/08/25 11:09) BMP (04/08/25 11:09) PBNP (04/08/25 11:09) Electrocardiogram (04/08/25 11:09) Hs Troponin I W Calculations (04/08/25 11:09) MG (04/08/25 11:30) Etomidate Inj (Amidate Inj) (04/08/25 12:25) Magnesium Sulf-Water 2g/50ml (Magnesium (04/08/25 12:35) Normal Saline 1000ml (0.9% Sodium Chlori (04/08/25 12:40) Vital Signs 04/08/25 04/08/25 04/08/25 04/08/25 11:13 11:54 12:15 12:22 Temp 97.9 97.9 Pulse 122 125 92 92 Resp 19 11 B/P (MAP) 140/115 132/101 146/102 (117) Pulse Ox 98 97 O2 Flow Rate 0 0 04/08/25 04/08/25 04/08/25 04/08/25 12:28 12:30 12:34 12:45 Pulse 98 53 58 52 Resp 12 22 18 21 B/P (MAP) 144/102 149/101 (117) 141/103 (116) Pulse Ox 97 96 98 96 O2 Delivery Nasal Cannula Nasal Cannula Nasal Cannula Room Air O2 Flow Rate 2.0 1.0 2.0 0 FiO2 28 04/08/25 04/08/25 04/08/25 04/08/25 12:56 13:22 13:57 14:05 Temp 97.9 97.9 97.9 Pulse 53 52 58 Resp 12 18 16 16 B/P (MAP) 137/95 (109) 145/97 (113) 149/90 (109) Pulse Ox 96 96 96 O2 Flow Rate 0 0 0 04/08/25 14:37 Temp 97.9 Pulse 58 Resp 16 B/P (MAP) /152 Pulse Ox 99 Laboratory Tests Test 04/08/25 11:30 White Blood Count 11.9 H Red Blood Count 5.04 Hemoglobin 15.8 Hematocrit 45.5 Mean Corpuscular Volume 90.3 Mean Corpuscular Hemoglobin 31.3 H Mean Corpuscular Hemoglobin Concent 34.6 Red Cell Distribution Width 14.0 Platelet Count 339 Mean Platelet Volume 7.9 Neutrophils (%) (Auto) 44.4 Lymphocytes (%) (Auto) 40.8 Monocytes (%) (Auto) 11.2 Eosinophils (%) (Auto) 2.2 Basophils (%) (Auto) 1.4 H Neutrophils # (Auto) 5.3 Lymphocytes # (Auto) 4.9 H Monocytes # (Auto) 1.3 H Eosinophils # (Auto) 0.3 Basophils # (Auto) 0.2 CBC Comment Sodium Level 141 Potassium Level 4.3 Chloride Level 111 H Carbon Dioxide Level 23.7 L Anion Gap 6 L Blood Urea Nitrogen 17 Creatinine 1.07 Estimated GFR/1.73 m2 71 BUN/Creatinine Ratio 15.9 Glucose Level 144 H Calcium Level 10.3 H Magnesium Level 1.7 Troponin I High Sensitivity 31 Pro-B-Type Natriuretic Peptide 4789 H Albumin 3.3 L Chemistry Comments Medical Decision Making Additional information obtaine: old records, other Findings Patient was found to be in AFib with RVR with a heart rate in 128 and EKG showing the same. Patient was given 10 mg of IV diltiazem push and one dose of sotalol 80 mg which is his home medication. Patient continues to be in atrial fibrillation with pending lab workup including magnesium and potassium levels. He was cardioverted 7 times in the past and is willing to get cardioverted again. His last dose of Eliquis was last night. He has not taken his medications this morning. Patient has been explained about the risks and benefits of cardioversion including possibility of intubation and new arrhythmias. Patient understands the risks and agrees to proceed with cardioversion. Procedure note:Patient placed in supine position,with monitor attached. Sedation administered with 10mg iv etomidate. Pads were placed in anteroposterior position and 200J biphasic energy was delivered. Pt converted to sinus rhythm in the first attempt. Immediate post procedure VSS. Patient was monitored in the recovery room without complications. Differential Dx:Considerations: Include: angina / NH, atrial dysrhythmia, atrial fibrillation, atrial flutter, MAT, PACs, PSVT, sinus tachycardia, 3rd degree AV block, PVCs, torsades de pointes, ventricular fibrillation, ventricular tachycardia, other Differential Dx:Considerations: Include anxiety/panic attack, Include digoxin toxicity, Include electrolyte disorder, Include heart failure, Include hyperthyroidism, Include hyperventilation, Include hypoxia, Include pacemaker malfunction, Include pulmonary embolus, Include renal failure, Include other Departure Disposition: 01 HOME / SELF CARE / HOMELESS Impression: Primary Impression: Atrial fibrillation Qualified Codes: I48.0 - Paroxysmal atrial fibrillation Additional Impression: Palpitations Condition: Improved Discharge Instructions: Atrial Fibrillation Additional Instructions: Follow up with the shared services and outsourcing manager and grade and center marker as soon as possible. Continue sotalol 80 mg b.i.d. as prescribed by a shared services and outsourcing manager and continue anticoagulation for at least four weeks after cardioversion. Return to the ER if you have recurrent palpitations. Avoid strenuous activity for 24-48 hours. Referrals: NO PRIMARY CARE PROVIDER (PCP) Education Educated: Patient Educated regarding: diagnosis, treatment, prognosis, need for follow up Additional Comment Seen with PA/DROP WIRE ALIGNER The patient was seen with the medical scribe, I have reviewed the residents note and agree with the note as written and with the assesment and plan. I have examined the patient and supervised all aspects of the patients care. The patients pulse oximetry was interpreted as normal and adequate. Signature Scribe Signature: No scribe Attestation: PGY2 resident attestation: Patient was seen and examined with the attending physician Dr. mary grace Fernandez MD PGY 2 internal medicine resident JAC NOEL, RES Apr 08, 2025 11:26 LILIYA LORD MD Apr 08, 2025 12:44
[2025-04-08 11:42] LABS: MEAN PLATELET VOLUME 7.9 FL (7.4-10.4); RED CELL DISTRIBUTION WIDTH 14.0 % (11.5-14.5)
--- NOTE | 2025-04-08 11:42 | RADIOLOGY REPORT ---
CHEST RADIOGRAPH Indication: CP Technique: Single frontal view of the chest was obtained COMPARISON: DI CHEST,SINGLE VIEW on DOS: 01/20/25, DI CHEST,SINGLE VIEW on DOS: 05/03/23, DI CHEST,SINGLE VIEW on DOS: 05/02/23, DI CHEST,SINGLE VIEW on DOS: 05/01/23, DI CHEST,SINGLE VIEW on DOS: 04/30/23 FINDINGS: Lines and Tubes: None Lungs: Increased interstitial prominence. This may represent pulmonary vascular congestion and/or viral pneumonia. Pleura: No effusion.No pneumothorax. Cardiomediastinal contours: Median sternotomy. Cardiomegaly. Bones: Unremarkable IMPRESSION: Increased interstitial prominence. This may represent pulmonary vascular congestion and/or viral pneumonia.
[2025-04-08] MEDS: diltiazem 5mg/ml 5ml inj. IV ONE (11:54)
[2025-04-08 12:04] LABS: CREATININE 1.07 MG/DL (0.60-1.10); PRO BRAIN NATRIURETIC PEPTIDE 4789 PG/ML (0-125); TOTAL CARBON DIOXIDE 23.7 MMOL/L (24-32); eCRCL 79 ML/MIN; eGFR 71 ML/MIN
[2025-04-08] MEDS: sotalol HCl 40mg (1/2 tablet) PO ONE (12:15)
--- NOTE | 2025-04-08 12:18 | ELECTROCARDIOGRAPH REPORT ---
[facility] Test Date: 2025-04-08 Test Time: 12:15:47 Pat Name: ANDRZEJ JACINTO Department: [facility] Patient ID: [facility]-[id number] Room: Gender: M Technical Services Coordinator: : 1965 Requested By: LILIYA LORD Order Number: [id number] Reading MD: Measurements Intervals [place] Rate: 91 P: 0 VT: 0 QRS: -19 QRSD: 123 T: -79 QT: 368 QTc: 453 Interpretive Statements Atrial fibrillation Ventricular premature complex LVH with IVCD and secondary repol abnrm Inferior infarct, age indeterminate Please click the below link to view image of tracing.
[2025-04-08] MEDS: etomidate 2mg/ml inj. IV ONE (12:26)
[2025-04-08] MEDS: normal saline 1000ML IV soln IVB ONE (12:55)
[2025-04-08] MEDS: magnesium sulf-water 2g/50mL 50 ML IV ONE (12:56)
--- NOTE | 2025-04-08 13:55 | ELECTROCARDIOGRAPH REPORT ---
[facility] Test Date: 2025-04-08 Test Time: 12:34:44 Pat Name: ANDRZEJ JACINTO Department: [facility] Patient ID: [facility]-[id number] Room: Gender: M Playground Worker: : 1965 Requested By: JAC NOEL Order Number: [id number] Reading MD: Dr. ROXANE Gong Measurements Intervals [place] Rate: 56 P: -6 NE: 201 QRS: -17 QRSD: 123 T: -53 QT: 455 QTc: 440 Interpretive Statements Sinus bradycardia Consider left atrial enlargement IVCD, consider atypical LBBB Electronically Signed On 04-09-2025 17:08:[address] ROXANE Gong Please click the below link to view image of tracing.
[2025-04-08 14:05] VITALS: BP_SYST 149
[2025-04-08 14:37] VITALS: BP_DIAS 152; PULSE 58; RESP 16; TEMP 97.9; O2SAT 99
--- NOTE | 2025-04-17 15:47 | ELECTROCARDIOGRAPH REPORT ---
[facility] Test Date: 2025-04-08 Test Time: 11:11:16 Pat Name: ANDRZEJ JACINTO Department: EMERGENCY ROOM Room: Gender: M Gasoline Dragline Operator: ABBY : 1965 Requested By: LILIYA LORD Order Number: [id number] Reading MD: Dr. ROXANE Gong Measurements Intervals [place] Rate: 108 P: 0 [place]: 0 QRS: -1 QRSD: 126 T: 256 QT: 350 QTc: 469 Interpretive Statements Atrial fibrillation IVCD, consider atypical LBBB Electronically Signed On 04-13-2025 13:05:[address] ROXANE Gong Please click the below link to view image of tracing.
== END 2025-04-08 14:40 | disposition home or self-care (01) ==
LOC: ER 11:08
DX: I48.91 Unspecified atrial fibrillation (principal); R00.2 Palpitations; R06.02 Shortness of breath; I25.10 Atherosclerotic heart disease of native coronary artery without angina pectoris; K21.9 Gastro-esophageal reflux disease without esophagitis; I10 Essential (primary) hypertension; Z88.0 Allergy status to penicillin; Z88.8 Allergy status to other drugs, medicaments and biological substances; Z90.49 Acquired absence of other specified parts of digestive tract; Z94.0 Kidney transplant status
CPT/HCPCS: 36415; 71045; 80048; 83735; 83880; 84484; 85025; 92960; 93005; 96365; 96375; 99285; J3490; J7030; 94640; 94644; 94760; A4620